=== PATIENT | male | born 1945 | race Caucasian/White ===

== ENCOUNTER 2018-08-10 22:39 | Emergency (ER) | payer MEDICARE, BC ==
[2018-08-10 23:24] VITALS: BP 182/69
[2018-08-11] MEDS ORDERED: Cephalexin 500 MG Cap PO ONE (00:08)
[2018-08-11] MEDS ORDERED: Acetaminophen/HYDROcodone 325-10 MG Tab PO ONE (00:08)
[2018-08-11] MEDS ORDERED: Bacitracin Oint 1 GM U/D Packet TOP ONE (00:13)
--- NOTE | 2018-08-11 00:15 | EDM.PDOC ---
ED HPI GENERAL MEDICAL PROBLEM - General Chief Complaint: Skin Complaint Stated Complaint: SWOLLEN FINGER LEFT HAND [phone] Time Seen by Provider: 08/11/18 00:02 Source of Information: Reports: Patient History Limitations: Reports: No Limitations - History of Present Illness INITIAL COMMENTS - FREE TEXT/NARRATIVE: This 72 yo male patient reports to the ED with left 2nd finger pain and swelling. The patient reports he picked something hard out of that area several days ago, but started to notice increased pain and swelling of the finger over the past 24 hours. 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 Left Finger-Index Pain Score (Numeric/FACES): 8 - Related Data Allergies Allergy/AdvReac Type Severity Reaction Status Date / Time No Known Allergies Allergy Verified 08/10/18 23:08 Home Meds: Home Meds Allopurinol [Zyloprim] 300 mg PO DAILY 05/06/16 [History] Furosemide 40 mg PO DAILY 05/06/16 [History] Insulin NPH/Insulin Reg,Human [NovoLIN 70-30] 60 units SUBCUT BID 05/06/16 [ History] Linagliptin [Tradjenta] 1 tab PO DAILY 05/06/16 [History] Metoprolol Tartrate 50 mg PO DAILY 05/06/16 [History] Rosuvastatin [Crestor] 10 mg PO BEDTIME 05/06/16 [History] Telmisartan [Micardis] 80 mg PO DAILY 05/06/16 [History] metFORMIN [Glucophage] 1 tab PO BID 05/06/16 [History] Past Medical History HEENT History: Reports: Cataract, Impaired Vision Cardiovascular History: Reports: CAD, High Cholesterol, Hypertension Respiratory History: Reports: None Gastrointestinal History: Reports: None Genitourinary History: Reports: None Musculoskeletal History: Reports: Amputation Neurological History: Reports: None Psychiatric History: Reports: None Endocrine/Metabolic History: Reports: Diabetes, Type II Hematologic History: Reports: None Immunologic History: Reports: None Oncologic (Cancer) History: Reports: Prostate Dermatologic History: Reports: None - Infectious Disease History Infectious Disease History: Reports: Chicken Pox, Measles, Mumps - Past Surgical History Cardiovascular Surgical History: Reports: Coronary Artery Stent Male Surgical History: Reports: TURP-Transurethral Resection of Prostate Social & Family History - Family History Family Medical History: Noncontributory - Caffeine Use Caffeine Use: Reports: Coffee, Soda Other Caffeine Use: 5-6 cups coffee/day ED ROS GENERAL - Review of Systems Review Of Systems: ROS reveals no pertinent complaints other than HPI. ED EXAM, SKIN/RASH Exam: See Below Exam Limited By: No Limitations General Appearance: Alert, WD/WN, Mild Distress Eye Exam: Bilateral Eye: EOMI Head: Atraumatic Neck: Normal Inspection Respiratory/Chest: No Respiratory Distress, Normal Breath Sounds Cardiovascular: Normal Peripheral Pulses, Regular Rate, Rhythm, No Edema, No Gallop, No JVD, No Murmur, No Rub GI/Abdominal: Normal Bowel Sounds, Soft, Non-Tender, No Organomegaly, No Distention, No Abnormal Bruit, No Mass (Male) Exam: Deferred Back Exam: Normal Inspection, Full Range of Motion, NT Extremities: Normal Inspection, Normal Range of Motion, Non-Tender, No Pedal Edema, Normal Capillary Refill Neurological: Alert, Oriented, CN II-XII Intact, Normal Cognition, Normal Gait, Normal Reflexes, No Motor/Sensory Deficits Psychiatric: Normal Affect, Normal Mood Skin: Erythema Location, Skin: Upper Extremity, Left Characteristics: Erythematous Associated features: Warmth, Tenderness, Swelling, Inflammation Lymphatic: No Adenopathy Course - Vital Signs Last Recorded V/S: Last Vital Signs Temp 37.4 C 08/10/18 23:19 Pulse 68 08/10/18 23:19 Resp 18 08/10/18 23:19 BP 182/69 H 08/10/18 23:19 Pulse Ox 97 08/10/18 23:19 - Orders/Labs/Meds Meds: Medications Discontinued Medications Generic Name Dose Route Start Last Admin Trade Name Freq PRN Reason Stop Dose Admin Hydrocodone Bitart/Acetaminophen 1 tab 08/11/18 00:08 [place] 325-10 Mg PO 08/11/18 00:09 ONETIME ONE Bacitracin 1 dose 08/11/18 00:13 Bacitracin Oint 1 Gm TOP 08/11/18 00:14 ONETIME ONE Cephalexin 500 mg 08/11/18 00:08 Keflex PO 08/11/18 00:09 ONETIME ONE Departure - Departure Time of Disposition: 00:11 Disposition: Home, Self-Care 01 Condition: Fair Clinical Impression: Ingrown fingernail, Cellulitis and abscess of finger, unspecified - Discharge Information *PRESCRIPTION DRUG MONITORING PROGRAM REVIEWED*: Not Applicable *COPY OF PRESCRIPTION DRUG MONITORING REPORT IN PATIENT MAGALY: Not Applicable Instructions: Cellulitis, Adult, [place] Forms: ED Department Discharge Care Plan Goals: The patient was advised of the examination results during the visit. The patient was given a dose of Erving and Keflex while in the ED. Th patient was discharged with a script for Keflex (500 mg) #40 to take 1 by mouth 4 times per day for 10 days. The patient was encouraged to soak his finger 2 times per day and continue to push back the skin along his fingernail. If the patient continues to have symptoms, the patient should follow-up with his primary care facility or return to the emergency department.
== END 2018-08-11 00:27 | disposition home or self-care (01) ==
LOC: DL.ED 22:39
DX: L02.512 Cutaneous abscess of left hand (principal); L03.012 Cellulitis of left finger; L60.0 Ingrowing nail; E11.9 Type 2 diabetes mellitus without complications; I10 Essential (primary) hypertension; Z79.4 Long term (current) use of insulin; Z79.899 Other long term (current) drug therapy
CPT/HCPCS: 99282; A9270

== ENCOUNTER 2018-08-11 14:18 | Inpatient (IN) | payer MEDICARE, BC ==
[2018-08-11] MEDS ORDERED: 50% Dextrose in Water 50 ML Syringe IVPUSH PRN (16:00)
[2018-08-11] MEDS ORDERED: Acetaminophen/HYDROcodone 325-10 MG Tab PO PRN (16:02)
[2018-08-11] MEDS ORDERED: Acetaminophen 325 MG Tab PO PRN (16:02)
[2018-08-11] MEDS ORDERED: Docusate Sodium 100 MG Cap PO PRN (16:02)
[2018-08-11] MEDS ORDERED: Ondansetron 4 MG Tab.DIS PO PRN (16:02)
[2018-08-11] MEDS ORDERED: Ibuprofen 400 MG Tab PO PRN (16:02)
--- NOTE | 2018-08-11 16:24 | PCM.HP ---
H&P History of Present Illness - General Date of Service: 08/11/18 Admit Problem/Dx: Admission Diagnosis/Problem Admission Diagnosis/Problem Cellulitis Source of Information: Patient - History of Present Illness Initial Comments - Free Text/Narative: h/o dm, htn, cad developed pain and swelling in the left second finger nail bed area about 2 weeks ago. The swelling got worse over the weekend. Associated with redness. The patient came into the emergency room. Was given Keflex. Took it for 1 day. Despite the antibiotic the swelling was getting worse, redness was moving more proximal. There was no fever with it. On the day of admission the patient presented to the clinic and the concern was uncontrolled infection and was recommended the further hospital treatment. - Related Data Allergies/Adverse Reactions: Allergies Allergy/AdvReac Type Severity Reaction Status Date / Time No Known Allergies Allergy Verified 08/11/18 15:40 Home Medications: Home Meds Allopurinol [Zyloprim] 100 mg PO DAILY 05/06/16 [History] Furosemide 40 mg PO DAILY 05/06/16 [History] Linagliptin [Tradjenta] 5 mg PO DAILY 05/06/16 [History] Rosuvastatin [Crestor] 40 mg PO BEDTIME 05/06/16 [History] Telmisartan [Micardis] 80 mg PO DAILY 05/06/16 [History] Aspirin 81 mg PO DAILY 08/11/18 [History] Insulin NPH/Insulin Reg,Human [Novolin 70-30] 60 units SUBCUT BIDMEALS 08/11/18 [History] Linagliptin [Tradjenta] 5 mg PO DAILY 08/11/18 [History] amLODIPine [Norvasc] 5 mg PO DAILY 08/11/18 [History] hydrALAZINE HCl [Hydralazine HCl] 100 mg PO TID 08/11/18 [History] Past Medical History HEENT History: Reports: Cataract, Impaired Vision Cardiovascular History: Reports: CAD, High Cholesterol, Hypertension, Stents Respiratory History: Reports: None, Sleep Apnea Gastrointestinal History: Reports: None, Diverticulosis, Hemorrhoids Genitourinary History: Reports: None Musculoskeletal History: Reports: Amputation, Arthritis, Gout Other Musculoskeletal History: Right ring and tip oif left middle finger Neurological History: Reports: None, Neuropathy, Diabetic Psychiatric History: Reports: None Endocrine/Metabolic History: Reports: Diabetes, Type II, Obesity/BMI 30+ Hematologic History: Reports: None Immunologic History: Reports: None Oncologic (Cancer) History: Reports: Prostate Dermatologic History: Reports: Cellulitis - Infectious Disease History Infectious Disease History: Reports: Chicken Pox, Measles - Past Surgical History Head Surgeries/Procedures: Reports: None Cardiovascular Surgical History: Reports: Coronary Artery Stent Other Cardiovascular Surgeries/Procedures: before 2008 GI Surgical History: Reports: Colonoscopy, EGD Male Surgical History: Reports: TURP-Transurethral Resection of Prostate Other Male Surgeries/Procedures: prostate removed Musculoskeletal Surgical History: Reports: Amputation Social & Family History - Family History Family Medical History: Noncontributory - Tobacco Use Smoking Status *Q: Former Smoker Used Tobacco, but Quit: Yes Month/Year Tobacco Last Used: 1989 Second Hand Smoke Exposure: No - Caffeine Use Caffeine Use: Reports: Coffee, Soda Other Caffeine Use: 5-6 cups coffee/day - Recreational Drug Use Recreational Drug Use: No H&P Review of Systems - Review of Systems: Review Of Systems: See Below General: Reports: Chills. Denies: Fever Pulmonary: Denies: Shortness of Breath Cardiovascular: Denies: Chest Pain, Edema Gastrointestinal: Denies: Abdominal Pain Skin: Reports: Other (Left second finger distal 4 phalanx pain, edema,) Psychiatric: Denies: Confusion Exam - Exam Exam: See Below - Vital Signs Vital Signs: Last Vital Signs Temp 37.3 C 08/11/18 14:26 Pulse 60 08/11/18 14:26 Resp 20 08/11/18 14:26 BP 163/65 H 08/11/18 14:26 Pulse Ox 97 08/11/18 14:26 Weight: 113.398 kg - Exam General: Alert, Oriented Neck: Supple Lungs: Clear to Auscultation, Normal Respiratory Effort Cardiovascular: Regular Rate, Regular Rhythm GI/Abdominal Exam: Normal Bowel Sounds, Soft, Non-Tender Extremities: No Pedal Edema Skin: Other (Left second finger with edema, no drainage, erythema, tenderness) Neuro Extensive - Mental Status: Alert, Oriented x3 - Patient Data Lab Results Last 24 hrs: Laboratory Results - last 24 hr 08/11/18 Range/Units 14:36 POC Glucose 137 H (83-110) mg/dl Result Diagrams: 08/11/18 16:05 08/11/18 16:05 - Problem List (1) Diabetes SNOMED Code(s): 67859226 ICD Code: E11.9 - TYPE 2 DIABETES MELLITUS WITHOUT COMPLICATIONS Status: Acute Current Visit: Yes (2) Cellulitis and abscess of finger, unspecified SNOMED Code(s): 105022344 ICD Code: L03.019 - CELLULITIS OF UNSPECIFIED FINGER; L02.519 - CUTANEOUS ABSCESS OF UNSPECIFIED HAND Status: Acute Current Visit: No (3) HTN (hypertension) SNOMED Code(s): 78183888 ICD Code: I10 - ESSENTIAL (PRIMARY) HYPERTENSION Status: Acute Current Visit: No Qualifiers: Hypertension type: essential hypertension Qualified Code(s): I10 - Essential (primary) hypertension Problem List Initiated/Reviewed/Updated: Yes Orders Last 24hrs: Active Orders 24 hr Category Date Time Status Patient Status [ADT] Routine ADT 08/11/18 16:02 Ordered Ambulate [RC] ASDIRECTED Care 08/11/18 16:02 Ordered Antiembolic Devices [RC] PER UNIT ROUTINE Care 08/11/18 16:05 Ordered Glucose [Blood Glucose Check, Bedside] [RC] QIDACANDBED Care 08/11/18 15:38 Inactive Glucose [Blood Glucose Check, Bedside] [RC] QIDACANDBED Care 08/11/18 15:49 Active Oxygen Therapy [RC] PRN Care 08/11/18 16:02 Ordered Peripheral IV Care [RC] . DIRECTED Care 08/11/18 16:05 Ordered Vital Signs [RC] Q4H Care 08/11/18 16:02 Ordered Consistent Carbohydrate Diet [DIET] Diet 08/11/18 Dinner Ordered BASIC METABOLIC PANEL,BMP [CHEM] AM Lab 08/12/18 05:15 Ordered BASIC METABOLIC PANEL,BMP [CHEM] Routine Lab 08/11/18 15:48 Ordered CBC WITH AUTO DIFF [HEME] AM Lab 08/12/18 05:15 Ordered CBC WITH AUTO DIFF [HEME] Routine Lab 08/11/18 15:48 Ordered CULTURE BLOOD [BC] Stat Lab 08/11/18 15:38 Ordered CULTURE BLOOD [BC] Stat Lab 08/11/18 15:38 Ordered Acetaminophen [Tylenol] Med 08/11/18 16:02 Ordered 650 mg PO Q4H PRN Acetaminophen/HYDROcodone [[place] 325-10 MG] Med 08/11/18 16:02 Ordered 1 tab PO Q4H PRN Allopurinol [Zyloprim] Med 08/12/18 09:00 Ordered 100 mg PO DAILY Aspirin Med 08/12/18 08:00 Ordered 81 mg PO WITHBREAKFAST Dextrose 50% in Water Med 08/11/18 15:49 Ordered 25 ml IVPUSH Q1H PRN Docusate Sodium [Colace] Med 08/11/18 16:02 Ordered 100 mg PO BID PRN Furosemide [Lasix] Med 08/12/18 09:00 Ordered 40 mg PO DAILY Heparin Sodium Med 08/11/18 22:00 Ordered 5,000 units SUBCUT Q8HR Ibuprofen [Motrin] Med 08/11/18 16:02 Ordered 400 mg PO Q6H PRN Insulin Lispro [HumaLOG] Med 08/11/18 17:00 Ordered See Protocol SUBCUT ACBED Insulin NPH/Insulin Reg,Human [NovoLIN 70-30] Med 08/11/18 18:00 Ordered 60 unit SUBCUT BIDMEALS Ondansetron [Zofran ODT] Med 08/11/18 16:02 Ordered 4 mg PO Q6H PRN Pharmacy to Dose - Vancomycin Med 08/11/18 16:00 Ordered 1 dose .XX ASDIRECTED Piperacillin/Tazobactam [Zosyn] 3.375 gm Med 08/11/18 16:00 Ordered Sodium Chloride 0.9% [Normal Saline] 100 ml IV Q6H Rosuvastatin [Crestor] Med 08/11/18 21:00 Ordered 40 mg PO BEDTIME Sodium Chloride 0.9% [Saline Flush] Med 08/11/18 16:02 Ordered 10 ml FLUSH ASDIRECTED PRN Telmisartan Med 08/12/18 09:00 Ordered 80 mg PO DAILY Zolpidem [Ambien] Med 08/11/18 16:02 Ordered 5 mg PO BEDTIME PRN amLODIPine [Norvasc] Med 08/12/18 09:00 Ordered 5 mg PO DAILY hydrALAZINE HCl [Hydralazine HCl] Med 08/11/18 21:00 Ordered 100 mg PO TID Antiembolic Hose [OM.PC] Per Unit Routine Oth 08/11/18 16:04 Ordered Blood Culture x2 Reflex Set [OM.PC] Stat Oth 08/11/18 15:38 Ordered Peripheral IV Insertion Adult [OM.PC] Routine Oth 08/11/18 16:02 Ordered Saline Lock Insert [OM.PC] Routine Oth 08/11/18 16:02 Ordered Resuscitation Status Routine Resus Stat 08/11/18 16:02 Ordered Medication Orders Acetaminophen (Tylenol) 650 mg PO Q4HR PRN PRN Reason: Pain (Mild 1-3)/fever Hydrocodone Bitart/Acetaminophen ([place] 325-10 Mg) 1 tab PO Q4HR PRN PRN Reason: Pain (severe 7-10) Allopurinol (Zyloprim) 100 mg PO DAILY [facility] Amlodipine Besylate (Norvasc) 5 mg PO DAILY [facility] Aspirin (Aspirin) 81 mg PO WITHBREAKFAST [facility] Dextrose/Water (Dextrose 50% In Water) 25 ml IVPUSH Q1H PRN PRN Reason: blood sugar <70 Docusate Sodium (Colace) 100 mg PO BID PRN PRN Reason: Constipation Furosemide (Lasix) 40 mg PO DAILY [facility] Heparin Sodium (Porcine) (Heparin Sodium) 5,000 units SUBCUT Q8HR [facility] Piperacillin Sod/Tazobactam (Sod 3.375 gm/ Sodium Chloride) 100 mls @ 200 mls/ hr IV Q6H [facility] Ibuprofen (Motrin) 400 mg PO Q6HR PRN PRN Reason: Pain (moderate 4-6) Insulin Human Isoph/Insulin Regular (Novolin 70-30) 60 unit SUBCUT BIDMEALS [facility] Insulin Human Lispro (Humalog) 0 unit SUBCUT ACBED KALEB; Protocol Non-Formulary Medication (Hydralazine Hcl [Hydralazine Hcl]) 100 mg PO TID [facility] Non-Formulary Medication (Telmisartan) 80 mg PO DAILY [facility] Ondansetron HCl (Zofran Odt) 4 mg PO Q6HR PRN PRN Reason: nausea, able to take PO Rosuvastatin Calcium (Crestor) 40 mg PO BEDTIME [facility] Sodium Chloride (Saline Flush) 10 ml FLUSH ASDIRECTED PRN PRN Reason: Keep Vein Open Vancomycin HCl (Pharmacy To Dose - Vancomycin) 1 dose .XX ASDIRECTED KALEB Zolpidem Tartrate (Ambien) 5 mg PO BEDTIME PRN PRN Reason: Sleep Assessment/Plan Comment:: 72-year-old gentleman with diabetes, hypertension. The patient developed cellulitis, swelling, redness, tenderness of the left second finger distal phalanx The patient failed outpatient antibiotic with Keflex Will obtain blood culture, CBC, basic metabolic panel Start empirical treatment with Zosyn and vancomycin Diabetes Will treat with Novolin 70/30 twice a day Treat with Supplemental insulin Use D50 for hypoglycemia Hypertension Treat with telmisartan, Norvasc DVT prophylaxis with subcutaneous heparin
[2018-08-11 17:02] LABS: ANION GAP 18.1
[2018-08-11] MEDS: Insulin NPH/Insulin Regular,Human 70-30 100 Units/ML 10 ML Vial SUBCUT SCH (18:23)
[2018-08-11] MEDS: Insulin Lispro 100 Units/ML 3 ML Vial SUBCUT SCH ×2 (19:04→21:17)
[2018-08-11] MEDS: Piperacillin/Tazobactam 3.375 GM in Sodium Chloride 0.9% 100 ML IV SCH (20:09)
[2018-08-11] MEDS ORDERED: Zolpidem 5 MG Tab PO PRN (21:00)
[2018-08-11] MEDS: hydrALAZINE 25 MG Tab PO SCH (22:05)
[2018-08-11] MEDS: Rosuvastatin 10 MG Tab PO SCH (22:07)
[2018-08-11] MEDS: Heparin Sodium 5,000 Units/ML Vial SUBCUT SCH (22:08)
[2018-08-12] MEDS: Piperacillin/Tazobactam 3.375 GM in Sodium Chloride 0.9% 100 ML IV SCH ×6 (00:32→23:43)
[2018-08-12] MEDS: Heparin Sodium 5,000 Units/ML Vial SUBCUT SCH ×3 (06:23→22:01)
[2018-08-12] MEDS: hydrALAZINE 25 MG Tab PO SCH ×3 (09:03→20:58)
[2018-08-12] MEDS: Furosemide 40 MG Tab PO SCH (09:07)
[2018-08-12] MEDS: Allopurinol 100 MG Tab PO SCH (09:07)
[2018-08-12] MEDS: Aspirin 81 MG Tab.Chew PO SCH (09:07)
[2018-08-12] MEDS: amLODIPine 5 MG Tab PO SCH (09:07)
[2018-08-12] MEDS: Insulin NPH/Insulin Regular,Human 70-30 100 Units/ML 10 ML Vial SUBCUT SCH ×2 (09:15→18:07)
[2018-08-12] MEDS: Insulin Lispro 100 Units/ML 3 ML Vial SUBCUT SCH ×4 (09:39→21:01)
--- NOTE | 2018-08-12 09:55 | PCM.PN ---
- General Info Date of Service: 08/12/18 Subjective Update: Overnight had no fever. Feels that the redness in the finger has improved, associated swelling is less. Symptoms started a few days prior to admission. No shortness of breath, no chest pain. Functional Status: Reports: Pain Controlled - Review of Systems General: Denies: Fever Pulmonary: Denies: Shortness of Breath Cardiovascular: Denies: Chest Pain Gastrointestinal: Denies: Abdominal Pain Neurological: Denies: Confusion - Patient Data Vitals - Most Recent: Last Vital Signs Temp 37.1 C 08/12/18 07:28 Pulse 54 L 08/12/18 07:28 Resp 19 08/12/18 07:28 BP 127/68 08/12/18 09:07 Pulse Ox 96 08/12/18 07:28 Weight - Most Recent: 113.398 kg I&O - Last 24 Hours: Intake & Output 08/11/18 08/12/18 08/12/18 22:59 06:59 14:59 Intake Total 886 103 240 Balance 886 103 240 Lab Results Last 24 Hours: Laboratory Results - last 24 hr 08/11/18 08/11/18 08/11/18 Range/Units 14:36 16:05 16:05 WBC 14.7 H (5.0-10.0) 10^3/uL RBC 5.60 (4.6-6.2) 10^6/uL Hgb 15.5 (14.0-18.0) g/dL Hct 46.5 (40.0-54.0) % MCV 83.0 (80-100) fL MCH 27.7 (27.0-34.0) pg MCHC 33.3 (33.0-35.0) g/dL Plt Count 287 (150-450) 10^3/uL Neut % (Auto) 75.7 H (42.2-75.2) % Lymph % (Auto) 9.5 L (20.5-50.1) % [place] % (Auto) 14.1 H (2-8) % Eos % (Auto) 0.3 L (1.0-3.0) % Baso % (Auto) 0.4 (0.0-1.0) % Sodium 134 L (135-145) mmol/L Potassium 3.1 L (3.6-5.0) mmol/L Chloride 98 L (101-111) mmol/L Carbon Dioxide 21.0 (21.0-31.0) mmol/L Anion Gap 18.1 BUN 17 (7-18) mg/dL Creatinine 1.4 H (0.6-1.3) mg/dL Est Cr Clr Drug Dosing 50.80 mL/min Estimated GFR (MDRD) 50 Glucose 109 H (74-105) mg/dL POC Glucose 137 H (83-110) mg/dl Calcium 10.0 (8.4-10.2) mg/dl 08/11/18 08/11/18 08/12/18 Range/Units 17:13 21:06 06:15 WBC 10.7 H (5.0-10.0) 10^3/uL RBC 5.23 (4.6-6.2) 10^6/uL Hgb 14.6 (14.0-18.0) g/dL Hct 43.9 (40.0-54.0) % MCV 83.9 (80-100) fL MCH 27.9 (27.0-34.0) pg MCHC 33.3 (33.0-35.0) g/dL Plt Count 288 (150-450) 10^3/uL Neut % (Auto) 67.8 (42.2-75.2) % Lymph % (Auto) 13.4 L (20.5-50.1) % [place] % (Auto) 17.1 H (2-8) % Eos % (Auto) 1.1 (1.0-3.0) % Baso % (Auto) 0.6 (0.0-1.0) % Sodium (135-145) mmol/L Potassium (3.6-5.0) mmol/L Chloride (101-111) mmol/L Carbon Dioxide (21.0-31.0) mmol/L Anion Gap BUN (7-18) mg/dL Creatinine (0.6-1.3) mg/dL Est Cr Clr Drug Dosing mL/min Estimated GFR (MDRD) Glucose (74-105) mg/dL POC Glucose 96 108 (83-110) mg/dl Calcium (8.4-10.2) mg/dl 08/12/18 08/12/18 Range/Units 06:15 07:54 WBC (5.0-10.0) 10^3/uL RBC (4.6-6.2) 10^6/uL Hgb (14.0-18.0) g/dL Hct (40.0-54.0) % MCV (80-100) fL MCH (27.0-34.0) pg MCHC (33.0-35.0) g/dL Plt Count (150-450) 10^3/uL Neut % (Auto) (42.2-75.2) % Lymph % (Auto) (20.5-50.1) % [place] % (Auto) (2-8) % Eos % (Auto) (1.0-3.0) % Baso % (Auto) (0.0-1.0) % Sodium 135 (135-145) mmol/L Potassium 3.0 L (3.6-5.0) mmol/L Chloride 98 L (101-111) mmol/L Carbon Dioxide 23.0 (21.0-31.0) mmol/L Anion Gap 17.0 BUN 22 H (7-18) mg/dL Creatinine 1.6 H (0.6-1.3) mg/dL Est Cr Clr Drug Dosing 44.45 mL/min Estimated GFR (MDRD) 43 Glucose 86 (74-105) mg/dL POC Glucose 94 (83-110) mg/dl Calcium 9.4 (8.4-10.2) mg/dl Med Orders - Current: Current Medications Acetaminophen (Tylenol) 650 mg PO Q4HR PRN PRN Reason: Pain (Mild 1-3)/fever Hydrocodone Bitart/Acetaminophen ([place] 325-10 Mg) 1 tab PO Q4HR PRN PRN Reason: Pain (severe 7-10) Allopurinol (Zyloprim) 100 mg PO DAILY [facility] Last Admin: 08/12/18 09:07 Dose: 100 mg Amlodipine Besylate (Norvasc) 5 mg PO DAILY [facility] Last Admin: 08/12/18 09:07 Dose: 5 mg Aspirin (Aspirin) 81 mg PO WITHBREAKFAST [facility] Last Admin: 08/12/18 09:07 Dose: 81 mg Dextrose/Water (Dextrose 50% In Water) 25 ml IVPUSH Q1H PRN PRN Reason: blood sugar <70 Docusate Sodium (Colace) 100 mg PO BID PRN PRN Reason: Constipation Furosemide (Lasix) 40 mg PO DAILY [facility] Last Admin: 08/12/18 09:07 Dose: 40 mg Heparin Sodium (Porcine) (Heparin Sodium) 5,000 units SUBCUT Q8HR [facility] Last Admin: 08/12/18 06:23 Dose: 5,000 units Hydralazine HCl (Apresoline) 100 mg PO TID [facility] Last Admin: 08/12/18 09:03 Dose: 100 mg Piperacillin Sod/Tazobactam (Sod 3.375 gm/ Sodium Chloride) 100 mls @ 200 mls/ hr IV Q6HR [facility] Last Admin: 08/12/18 05:47 Dose: 200 mls/hr Vancomycin HCl 1 gm/ Sodium (Chloride) 250 mls @ 166.667 mls/hr IV Q12H [facility] Last Admin: 08/12/18 06:23 Dose: 166.667 mls/hr Ibuprofen (Motrin) 400 mg PO Q6HR PRN PRN Reason: Pain (moderate 4-6) Last Admin: 08/11/18 18:19 Dose: 400 mg Insulin Human Isoph/Insulin Regular (Novolin 70-30) 60 unit SUBCUT BIDMEALS [facility] Last Admin: 08/12/18 09:15 Dose: 60 units Insulin Human Lispro (Humalog) 0 unit SUBCUT ACBED [facility]; Protocol Last Admin: 08/12/18 09:39 Dose: Not Given Non-Formulary Medication (Telmisartan) 80 mg PO DAILY [facility] Ondansetron HCl (Zofran Odt) 4 mg PO Q6HR PRN PRN Reason: nausea, able to take PO Potassium Chloride (Klor-Con 10) 40 meq PO BIDMEALS [facility] Stop: 08/12/18 18:01 Potassium Chloride (Klor-Con 10) 20 meq PO WITHBREAKFAST [facility] Rosuvastatin Calcium (Crestor) 40 mg PO BEDTIME [facility] Last Admin: 08/11/18 22:07 Dose: 40 mg Sodium Chloride (Saline Flush) 10 ml FLUSH ASDIRECTED PRN PRN Reason: Keep Vein Open Vancomycin HCl (Pharmacy To Dose - Vancomycin) 1 dose .XX ASDIRECTED [facility] Zolpidem Tartrate (Ambien) 5 mg PO BEDTIME PRN PRN Reason: Sleep Discontinued Medications Vancomycin HCl 1.25 gm/ Sodium (Chloride) 250 mls @ 166.667 mls/hr IV ONETIME ONE Stop: 08/11/18 18:29 Last Admin: 08/11/18 18:20 Dose: 166.667 mls/hr - Exam Quality Assessment: No: Supplemental Oxygen General: Alert, Oriented Neck: Supple Lungs: Clear to Auscultation, Normal Respiratory Effort Cardiovascular: Regular Rate, Regular Rhythm GI/Abdominal Exam: Normal Bowel Sounds, Soft, Non-Tender Extremities: No Pedal Edema, Other (left second finger less swollen, improved proximal redness) - Problem List & Annotations (1) Diabetes SNOMED Code(s): 68110960 Code(s): E11.9 - TYPE 2 DIABETES MELLITUS WITHOUT COMPLICATIONS Status: Acute Current Visit: Yes (2) Cellulitis and abscess of finger, unspecified SNOMED Code(s): 876835944 Code(s): L03.019 - CELLULITIS OF UNSPECIFIED FINGER; L02.519 - CUTANEOUS ABSCESS OF UNSPECIFIED HAND Status: Acute Current Visit: No (3) HTN (hypertension) SNOMED Code(s): 80920876 Code(s): I10 - ESSENTIAL (PRIMARY) HYPERTENSION Status: Acute Current Visit: No Qualifiers: Hypertension type: essential hypertension Qualified Code(s): I10 - Essential (primary) hypertension - Problem List Review Problem List Initiated/Reviewed/Updated: Yes - My Orders Last 24 Hours: My Active Orders 08/11/18 15:38 Glucose [Blood Glucose Check, Bedside] [RC] QIDACANDBED Blood Culture x2 Reflex Set [OM.PC] Stat 08/11/18 15:49 Glucose [Blood Glucose Check, Bedside] [RC] 0730,1130,1630,21 08/11/18 16:00 Dextrose 50% in Water 25 ml IVPUSH Q1H PRN Pharmacy to Dose - Vancomycin 1 dose .XX ASDIRECTED 08/11/18 16:02 Patient Status [ADT] Routine Ambulate [RC] ASDIRECTED Oxygen Therapy [RC] PRN Vital Signs [RC] 00,04,08,12,16,20 Acetaminophen [Tylenol] 650 mg PO Q4HR PRN Acetaminophen/HYDROcodone [Orla 325-10 MG] 1 tab PO Q4HR PRN Docusate Sodium [Colace] 100 mg PO BID PRN Ibuprofen [Motrin] 400 mg PO Q6HR PRN Ondansetron [Zofran ODT] 4 mg PO Q6HR PRN Sodium Chloride 0.9% [Saline Flush] 10 ml FLUSH ASDIRECTED PRN Peripheral IV Insertion Adult [OM.PC] Routine Saline Lock Insert [OM.PC] Routine Resuscitation Status Routine 08/11/18 16:04 Antiembolic Hose [OM.PC] Per Unit Routine 08/11/18 16:05 Antiembolic Devices [RC] PER UNIT ROUTINE Peripheral IV Care [RC] CULTURE BLOOD [BC] Stat 08/11/18 16:15 CULTURE BLOOD [BC] Stat 08/11/18 17:00 Insulin Lispro [HumaLOG] See Protocol SUBCUT ACBED 08/11/18 18:00 Insulin NPH/Insulin Reg,Human [NovoLIN 70-30] 60 unit SUBCUT BIDMEALS Piperacillin/Tazobactam [Zosyn] 3.375 gm Sodium Chloride 0.9% [Normal Saline] 100 ml IV Q6HR 08/11/18 21:00 Rosuvastatin [Crestor] 40 mg PO BEDTIME Zolpidem [Ambien] 5 mg PO BEDTIME PRN hydrALAZINE [Apresoline] 100 mg PO TID 08/11/18 22:00 Heparin Sodium 5,000 units SUBCUT Q8HR 08/11/18 Dinner Consistent Carbohydrate Diet [DIET] 08/12/18 06:00 Vancomycin 1 gm Sodium Chloride 0.9% [Normal Saline] 250 ml IV Q12H 08/12/18 08:00 Aspirin 81 mg PO WITHBREAKFAST 08/12/18 09:00 Allopurinol [Zyloprim] 100 mg PO DAILY Furosemide [Lasix] 40 mg PO DAILY Telmisartan 80 mg PO DAILY amLODIPine [Norvasc] 5 mg PO DAILY 08/12/18 10:00 Potassium Chloride [Klor-Con 10] 40 meq PO BIDMEALS 08/13/18 05:15 BASIC METABOLIC PANEL,BMP [CHEM] AM CBC WITH AUTO DIFF [HEME] AM 08/13/18 05:30 VANCOMYCIN TROUGH [CHEM] Timed 08/13/18 08:00 Potassium Chloride [Klor-Con 10] 20 meq PO WITHBREAKFAST - Plan Plan:: 72-year-old gentleman with diabetes, hypertension. The patient developed cellulitis, swelling, redness, tenderness of the left second finger distal phalanx The patient failed outpatient antibiotic with Keflex blood culture: pending treatment with Zosyn and vancomycin Diabetes Will treat with Novolin 70/30 twice a day Treat with Supplemental insulin Use D50 for hypoglycemia Hypertension Treat with telmisartan, Norvasc Chronic kidney disease stage III Monitor renal function and electrolytes with vancomycin DVT prophylaxis with subcutaneous heparin
[2018-08-12] MEDS: TELMISARTAN 80 MG PO SCH (10:24)
[2018-08-12] MEDS: Potassium Chloride 10 MEQ Tab.ER PO SCH ×2 (12:02→18:10)
[2018-08-12] MEDS: Rosuvastatin 10 MG Tab PO SCH (20:59)
[2018-08-13] MEDS: Piperacillin/Tazobactam 3.375 GM in Sodium Chloride 0.9% 100 ML IV SCH ×3 (05:55→17:36)
[2018-08-13] MEDS: Heparin Sodium 5,000 Units/ML Vial SUBCUT SCH ×3 (05:56→21:59)
[2018-08-13 06:21] LABS: ANION GAP 13.7
[2018-08-13] MEDS: Insulin Lispro 100 Units/ML 3 ML Vial SUBCUT SCH ×4 (07:59→22:01)
[2018-08-13] MEDS: Aspirin 81 MG Tab.Chew PO SCH (08:11)
[2018-08-13] MEDS: hydrALAZINE 25 MG Tab PO SCH ×3 (08:12→21:59)
[2018-08-13] MEDS: Potassium Chloride 10 MEQ Tab.ER PO SCH (08:12)
[2018-08-13] MEDS: amLODIPine 5 MG Tab PO SCH (08:13)
[2018-08-13] MEDS: Furosemide 40 MG Tab PO SCH (08:13)
[2018-08-13] MEDS: Allopurinol 100 MG Tab PO SCH (08:14)
[2018-08-13] MEDS: TELMISARTAN 80 MG PO SCH (08:15)
[2018-08-13] MEDS: Insulin NPH/Insulin Regular,Human 70-30 100 Units/ML 10 ML Vial SUBCUT SCH ×2 (09:40→17:35)
--- NOTE | 2018-08-13 09:55 | PCM.PN ---
- General Info Date of Service: 08/13/18 Admission Dx/Problem (Free Text): Admission Diagnosis/Problem Admission Diagnosis/Problem Cellulitis Subjective Update: Overnight had no fever. Feels that the finger has further improved, the associated swelling is less. Symptoms started a few days prior to admission. No shortness of breath, no chest pain. no drainage noted low BS - was asymptomatic Functional Status: Reports: Pain Controlled, Tolerating Diet - Review of Systems Pulmonary: Denies: Shortness of Breath Cardiovascular: Denies: Chest Pain, Edema Skin: Reports: Other (tenderness left 2nd finger) - Patient Data Vitals - Most Recent: Last Vital Signs Temp 36.6 C 08/13/18 07:38 Pulse 62 08/13/18 08:22 Resp 18 08/13/18 07:38 BP 144/63 H 08/13/18 08:13 Pulse Ox 97 08/13/18 07:38 Weight - Most Recent: 113.398 kg I&O - Last 24 Hours: Intake & Output 08/12/18 08/13/18 08/13/18 22:59 06:59 14:59 Intake Total 450 710 600 Balance 450 710 600 Lab Results Last 24 Hours: Laboratory Results - last 24 hr 08/12/18 08/12/18 08/12/18 Range/Units 11:23 17:01 20:59 WBC (5.0-10.0) 10^3/uL RBC (4.6-6.2) 10^6/uL Hgb (14.0-18.0) g/dL Hct (40.0-54.0) % MCV (80-100) fL MCH (27.0-34.0) pg MCHC (33.0-35.0) g/dL Plt Count (150-450) 10^3/uL Neut % (Auto) (42.2-75.2) % Lymph % (Auto) (20.5-50.1) % [place] % (Auto) (2-8) % Eos % (Auto) (1.0-3.0) % Baso % (Auto) (0.0-1.0) % Sodium (135-145) mmol/L Potassium (3.6-5.0) mmol/L Chloride (101-111) mmol/L Carbon Dioxide (21.0-31.0) mmol/L Anion Gap BUN (7-18) mg/dL Creatinine (0.6-1.3) mg/dL Est Cr Clr Drug Dosing mL/min Estimated GFR (MDRD) Glucose (74-105) mg/dL POC Glucose 161 H 148 H 137 H (83-110) mg/dl Calcium (8.4-10.2) mg/dl Vancomycin Trough (10-15) ug/ml 08/13/18 08/13/18 08/13/18 Range/Units 05:45 05:45 05:45 WBC 10.9 H (5.0-10.0) 10^3/uL RBC 4.88 (4.6-6.2) 10^6/uL Hgb 13.7 L (14.0-18.0) g/dL Hct 41.1 (40.0-54.0) % MCV 84.2 (80-100) fL MCH 28.1 (27.0-34.0) pg MCHC 33.3 (33.0-35.0) g/dL Plt Count 266 (150-450) 10^3/uL Neut % (Auto) 68.3 (42.2-75.2) % Lymph % (Auto) 13.6 L (20.5-50.1) % [place] % (Auto) 16.0 H (2-8) % Eos % (Auto) 1.6 (1.0-3.0) % Baso % (Auto) 0.5 (0.0-1.0) % Sodium 135 (135-145) mmol/L Potassium 3.7 (3.6-5.0) mmol/L Chloride 103 (101-111) mmol/L Carbon Dioxide 22.0 (21.0-31.0) mmol/L Anion Gap 13.7 BUN 23 H (7-18) mg/dL Creatinine 1.7 H (0.6-1.3) mg/dL Est Cr Clr Drug Dosing 41.83 mL/min Estimated GFR (MDRD) 40 Glucose 73 L (74-105) mg/dL POC Glucose (83-110) mg/dl Calcium 9.0 (8.4-10.2) mg/dl Vancomycin Trough 14.5 (10-15) ug/ml 08/13/18 08/13/18 Range/Units 07:15 09:24 WBC (5.0-10.0) 10^3/uL RBC (4.6-6.2) 10^6/uL Hgb (14.0-18.0) g/dL Hct (40.0-54.0) % MCV (80-100) fL MCH (27.0-34.0) pg MCHC (33.0-35.0) g/dL Plt Count (150-450) 10^3/uL Neut % (Auto) (42.2-75.2) % Lymph % (Auto) (20.5-50.1) % [place] % (Auto) (2-8) % Eos % (Auto) (1.0-3.0) % Baso % (Auto) (0.0-1.0) % Sodium (135-145) mmol/L Potassium (3.6-5.0) mmol/L Chloride (101-111) mmol/L Carbon Dioxide (21.0-31.0) mmol/L Anion Gap BUN (7-18) mg/dL Creatinine (0.6-1.3) mg/dL Est Cr Clr Drug Dosing mL/min Estimated GFR (MDRD) Glucose (74-105) mg/dL POC Glucose 66 L 149 H (83-110) mg/dl Calcium (8.4-10.2) mg/dl Vancomycin Trough (10-15) ug/ml Paul Results Last 24 Hours: Microbiology 08/11/18 16:15 Aerobic Blood Culture - Preliminary Blood - Venous - Lab Draw NO GROWTH AFTER 1 DAY Anaerobic Blood Culture - Preliminary NO GROWTH AFTER 1 DAY 08/11/18 16:05 Aerobic Blood Culture - Preliminary Blood - Venous NO GROWTH AFTER 1 DAY Anaerobic Blood Culture - Preliminary NO GROWTH AFTER 1 DAY Med Orders - Current: Current Medications Acetaminophen (Tylenol) 650 mg PO Q4HR PRN PRN Reason: Pain (Mild 1-3)/fever Hydrocodone Bitart/Acetaminophen ([place] 325-10 Mg) 1 tab PO Q4HR PRN PRN Reason: Pain (severe 7-10) Allopurinol (Zyloprim) 100 mg PO DAILY [facility] Last Admin: 08/13/18 08:14 Dose: 100 mg Amlodipine Besylate (Norvasc) 5 mg PO DAILY [facility] Last Admin: 08/13/18 08:13 Dose: 5 mg Aspirin (Aspirin) 81 mg PO WITHBREAKFAST [facility] Last Admin: 08/13/18 08:11 Dose: 81 mg Dextrose/Water (Dextrose 50% In Water) 25 ml IVPUSH Q1H PRN PRN Reason: blood sugar <70 Docusate Sodium (Colace) 100 mg PO BID PRN PRN Reason: Constipation Last Admin: 08/12/18 18:10 Dose: 100 mg Furosemide (Lasix) 40 mg PO DAILY [facility] Last Admin: 08/13/18 08:13 Dose: 40 mg Heparin Sodium (Porcine) (Heparin Sodium) 5,000 units SUBCUT Q8HR [facility] Last Admin: 08/13/18 05:56 Dose: 5,000 units Hydralazine HCl (Apresoline) 100 mg PO TID [facility] Last Admin: 08/13/18 08:12 Dose: 100 mg Piperacillin Sod/Tazobactam (Sod 3.375 gm/ Sodium Chloride) 100 mls @ 200 mls/ hr IV Q6HR [facility] Last Admin: 08/13/18 05:55 Dose: 200 mls/hr Ibuprofen (Motrin) 400 mg PO Q6HR PRN PRN Reason: Pain (moderate 4-6) Last Admin: 08/11/18 18:19 Dose: 400 mg Insulin Human Isoph/Insulin Regular (Novolin 70-30) 60 unit SUBCUT BIDMEALS [facility] Last Admin: 08/13/18 09:40 Dose: 60 units Insulin Human Lispro (Humalog) 0 unit SUBCUT ACBED [facility]; Protocol Last Admin: 08/13/18 07:59 Dose: Not Given Ondansetron HCl (Zofran Odt) 4 mg PO Q6HR PRN PRN Reason: nausea, able to take PO Telmisartan 80 Mg (Pt's Own Med) 0 each PO DAILY [facility] Last Admin: 08/13/18 08:15 Dose: 1 each Potassium Chloride (Klor-Con 10) 20 meq PO WITHBREAKFAST [facility] Last Admin: 08/13/18 08:12 Dose: 20 meq Rosuvastatin Calcium (Crestor) 40 mg PO BEDTIME [facility] Last Admin: 08/12/18 20:59 Dose: 40 mg Sodium Chloride (Saline Flush) 10 ml FLUSH ASDIRECTED PRN PRN Reason: Keep Vein Open Vancomycin HCl (Pharmacy To Dose - Vancomycin) 1 dose .XX ASDIRECTED [facility] Zolpidem Tartrate (Ambien) 5 mg PO BEDTIME PRN PRN Reason: Sleep Discontinued Medications Piperacillin Sod/Tazobactam (Sod 3.375 gm/ Sodium Chloride) 100 mls @ 200 mls/ hr IV Q6HR [facility] Last Admin: 08/12/18 12:12 Dose: Not Given Vancomycin HCl 1.25 gm/ Sodium (Chloride) 250 mls @ 166.667 mls/hr IV ONETIME ONE Stop: 08/11/18 18:29 Last Admin: 08/11/18 18:20 Dose: 166.667 mls/hr Vancomycin HCl 1 gm/ Sodium (Chloride) 250 mls @ 166.667 mls/hr IV Q12H [facility] Last Admin: 08/13/18 06:30 Dose: 166.667 mls/hr Potassium Chloride (Klor-Con 10) 40 meq PO BIDMEALS [facility] Stop: 08/12/18 18:01 Last Admin: 08/12/18 18:10 Dose: 40 meq - Exam General: Alert, Oriented Neck: Supple Lungs: Clear to Auscultation, Normal Respiratory Effort Cardiovascular: Regular Rate, Regular Rhythm GI/Abdominal Exam: Normal Bowel Sounds, Soft, Non-Tender Extremities: Other (left 2nd finger distal deep red discoloration, warm, mod tenderness, no apparent abscess) - Problem List & Annotations (1) Diabetes SNOMED Code(s): 99859894 Code(s): E11.9 - TYPE 2 DIABETES MELLITUS WITHOUT COMPLICATIONS Status: Acute Current Visit: Yes (2) Cellulitis and abscess of finger, unspecified SNOMED Code(s): 857668445 Code(s): L03.019 - CELLULITIS OF UNSPECIFIED FINGER; L02.519 - CUTANEOUS ABSCESS OF UNSPECIFIED HAND Status: Acute Current Visit: No (3) HTN (hypertension) SNOMED Code(s): 73163071 Code(s): I10 - ESSENTIAL (PRIMARY) HYPERTENSION Status: Acute Current Visit: No Qualifiers: Hypertension type: essential hypertension Qualified Code(s): I10 - Essential (primary) hypertension - Problem List Review Problem List Initiated/Reviewed/Updated: Yes - My Orders Last 24 Hours: My Active Orders 08/12/18 09:00 Allopurinol [Zyloprim] 100 mg PO DAILY Furosemide [Lasix] 40 mg PO DAILY Patient's Own Medication [Ptom] 0 each PO DAILY amLODIPine [Norvasc] 5 mg PO DAILY 08/12/18 12:00 Piperacillin/Tazobactam [Zosyn] 3.375 gm Sodium Chloride 0.9% [Normal Saline] 100 ml IV Q6HR 08/13/18 08:00 Potassium Chloride [Klor-Con 10] 20 meq PO WITHBREAKFAST 08/13/18 09:37 Hand w wo Cont Lt [MR] Routine 08/14/18 05:15 BASIC METABOLIC PANEL,BMP [CHEM] AM CBC WITH AUTO DIFF [HEME] AM - Plan Plan:: 72-year-old gentleman with diabetes, hypertension. The patient developed cellulitis, swelling, redness, tenderness of the left second finger distal phalanx The patient failed outpatient antibiotic with Keflex blood culture: pending obtain MRI to check for osteo, abscess treat with Zosyn stop vancomycin re: increasing creatinine Diabetes Will treat with Novolin 70/30 twice a day follow for morning hypoglycemia Treat with Supplemental insulin Use D50 for hypoglycemia Hypertension Treat with telmisartan, Norvasc Chronic kidney disease stage III Monitor renal function and electrolytes stop vancomycin DVT prophylaxis with subcutaneous heparin
[2018-08-13] MEDS: Sodium Chloride 0.9% 10 ML Syringe FLUSH PRN (12:40)
[2018-08-13] MEDS: Rosuvastatin 10 MG Tab PO SCH (22:00)
[2018-08-14] MEDS: Piperacillin/Tazobactam 3.375 GM in Sodium Chloride 0.9% 100 ML IV SCH ×4 (00:15→18:02)
[2018-08-14] MEDS: Heparin Sodium 5,000 Units/ML Vial SUBCUT SCH ×3 (06:22→21:25)
[2018-08-14 07:06] LABS: ANION GAP 14.1
[2018-08-14] MEDS: Insulin NPH/Insulin Regular,Human 70-30 100 Units/ML 10 ML Vial SUBCUT SCH ×2 (09:19→17:34)
[2018-08-14] MEDS: Potassium Chloride 10 MEQ Tab.ER PO SCH (09:21)
[2018-08-14] MEDS: Allopurinol 100 MG Tab PO SCH (09:21)
[2018-08-14] MEDS: hydrALAZINE 25 MG Tab PO SCH ×3 (09:22→21:24)
[2018-08-14] MEDS: amLODIPine 5 MG Tab PO SCH (09:23)
[2018-08-14] MEDS: Furosemide 40 MG Tab PO SCH (09:23)
[2018-08-14] MEDS: Aspirin 81 MG Tab.Chew PO SCH (09:23)
[2018-08-14] MEDS: Insulin Lispro 100 Units/ML 3 ML Vial SUBCUT SCH ×4 (09:56→21:20)
[2018-08-14] MEDS: TELMISARTAN 80 MG PO SCH (11:13)
--- NOTE | 2018-08-14 11:16 | PCM.PN ---
- General Info Date of Service: 08/14/18 Admission Dx/Problem (Free Text): Admission Diagnosis/Problem Admission Diagnosis/Problem Cellulitis Subjective Update: He was seen and examined today. No acute event overnight. Swelling and redness of finger improving. No fever or chills. Functional Status: Reports: Pain Controlled - Review of Systems General: Reports: No Symptoms HEENT: Reports: No Symptoms Pulmonary: Reports: No Symptoms Cardiovascular: Reports: No Symptoms Gastrointestinal: Reports: No Symptoms Genitourinary: Reports: No Symptoms Musculoskeletal: Reports: No Symptoms Skin: Reports: No Symptoms Neurological: Reports: No Symptoms Psychiatric: Reports: No Symptoms - Patient Data Vitals - Most Recent: Last Vital Signs Temp 98.2 F 08/14/18 08:00 Pulse 46 L 08/14/18 08:00 Resp 18 08/14/18 08:00 BP 139/80 08/14/18 09:23 Pulse Ox 96 08/14/18 08:00 Weight - Most Recent: 250 lb I&O - Last 24 Hours: Intake & Output 08/13/18 08/14/18 08/14/18 22:59 06:59 14:59 Intake Total 710 93 560 Balance 710 93 560 Lab Results Last 24 Hours: Laboratory Results - last 24 hr 08/13/18 08/13/18 08/13/18 Range/Units 11:15 17:06 21:11 WBC (5.0-10.0) 10^3/uL RBC (4.6-6.2) 10^6/uL Hgb (14.0-18.0) g/dL Hct (40.0-54.0) % MCV (80-100) fL MCH (27.0-34.0) pg MCHC (33.0-35.0) g/dL Plt Count (150-450) 10^3/uL Neut % (Auto) (42.2-75.2) % Lymph % (Auto) (20.5-50.1) % Reeves % (Auto) (2-8) % Eos % (Auto) (1.0-3.0) % Baso % (Auto) (0.0-1.0) % Sodium (135-145) mmol/L Potassium (3.6-5.0) mmol/L Chloride (101-111) mmol/L Carbon Dioxide (21.0-31.0) mmol/L Anion Gap BUN (7-18) mg/dL Creatinine (0.6-1.3) mg/dL Est Cr Clr Drug Dosing mL/min Estimated GFR (MDRD) Glucose (74-105) mg/dL POC Glucose 127 H 136 H 111 H (83-110) mg/dl Calcium (8.4-10.2) mg/dl 08/14/18 08/14/18 08/14/18 Range/Units 06:40 06:40 07:02 WBC 9.3 (5.0-10.0) 10^3/uL RBC 4.79 (4.6-6.2) 10^6/uL Hgb 13.3 L (14.0-18.0) g/dL Hct 40.6 (40.0-54.0) % MCV 84.8 (80-100) fL MCH 27.8 (27.0-34.0) pg MCHC 32.8 L (33.0-35.0) g/dL Plt Count 273 (150-450) 10^3/uL Neut % (Auto) 68.5 (42.2-75.2) % Lymph % (Auto) 11.8 L (20.5-50.1) % [place]eves % (Auto) 16.0 H (2-8) % Eos % (Auto) 2.8 (1.0-3.0) % Baso % (Auto) 0.9 (0.0-1.0) % Sodium 138 (135-145) mmol/L Potassium 4.1 (3.6-5.0) mmol/L Chloride 106 (101-111) mmol/L Carbon Dioxide 22.0 (21.0-31.0) mmol/L Anion Gap 14.1 BUN 19 H (7-18) mg/dL Creatinine 1.5 H (0.6-1.3) mg/dL Est Cr Clr Drug Dosing 47.41 mL/min Estimated GFR (MDRD) 46 Glucose 75 (74-105) mg/dL POC Glucose 63 L (83-110) mg/dl Calcium 9.5 (8.4-10.2) mg/dl Paul Results Last 24 Hours: Microbiology 08/11/18 16:15 Aerobic Blood Culture - Preliminary Blood - Venous - Lab Draw NO GROWTH AFTER 2 DAYS Anaerobic Blood Culture - Preliminary NO GROWTH AFTER 2 DAYS 08/11/18 16:05 Aerobic Blood Culture - Preliminary Blood - Venous NO GROWTH AFTER 2 DAYS Anaerobic Blood Culture - Preliminary NO GROWTH AFTER 2 DAYS Med Orders - Current: Current Medications Acetaminophen (Tylenol) 650 mg PO Q4HR PRN PRN Reason: Pain (Mild 1-3)/fever Hydrocodone Bitart/Acetaminophen ([place] 325-10 Mg) 1 tab PO Q4HR PRN PRN Reason: Pain (severe 7-10) Allopurinol (Zyloprim) 100 mg PO DAILY [facility] Last Admin: 08/14/18 09:21 Dose: 100 mg Amlodipine Besylate (Norvasc) 5 mg PO DAILY [facility] Last Admin: 08/14/18 09:23 Dose: 5 mg Aspirin (Aspirin) 81 mg PO WITHBREAKFAST [facility] Last Admin: 08/14/18 09:23 Dose: 81 mg Dextrose/Water (Dextrose 50% In Water) 25 ml IVPUSH Q1H PRN PRN Reason: blood sugar <70 Docusate Sodium (Colace) 100 mg PO BID PRN PRN Reason: Constipation Last Admin: 08/12/18 18:10 Dose: 100 mg Furosemide (Lasix) 40 mg PO DAILY [facility] Last Admin: 08/14/18 09:23 Dose: 40 mg Heparin Sodium (Porcine) (Heparin Sodium) 5,000 units SUBCUT Q8HR [facility] Last Admin: 08/14/18 06:22 Dose: 5,000 units Hydralazine HCl (Apresoline) 100 mg PO TID [facility] Last Admin: 08/14/18 09:22 Dose: 100 mg Piperacillin Sod/Tazobactam (Sod 3.375 gm/ Sodium Chloride) 100 mls @ 200 mls/ hr IV Q6HR [facility] Last Admin: 08/14/18 06:22 Dose: 200 mls/hr Ibuprofen (Motrin) 400 mg PO Q6HR PRN PRN Reason: Pain (moderate 4-6) Last Admin: 08/11/18 18:19 Dose: 400 mg Insulin Human Isoph/Insulin Regular (Novolin 70-30) 60 unit SUBCUT BIDMEALS [facility] Last Admin: 08/14/18 09:19 Dose: 60 units Insulin Human Lispro (Humalog) 0 unit SUBCUT ACBED [facility]; Protocol Last Admin: 08/14/18 09:56 Dose: Not Given Ondansetron HCl (Zofran Odt) 4 mg PO Q6HR PRN PRN Reason: nausea, able to take PO Telmisartan 80 Mg (Pt's Own Med) 0 each PO DAILY [facility] Last Admin: 08/13/18 08:15 Dose: 1 each Potassium Chloride (Klor-Con 10) 20 meq PO WITHBREAKFAST [facility] Last Admin: 08/14/18 09:21 Dose: 20 meq Rosuvastatin Calcium (Crestor) 40 mg PO BEDTIME [facility] Last Admin: 08/13/18 22:00 Dose: 40 mg Sodium Chloride (Saline Flush) 10 ml FLUSH ASDIRECTED PRN PRN Reason: Keep Vein Open Last Admin: 08/13/18 12:40 Dose: 10 ml Zolpidem Tartrate (Ambien) 5 mg PO BEDTIME PRN PRN Reason: Sleep Discontinued Medications Piperacillin Sod/Tazobactam (Sod 3.375 gm/ Sodium Chloride) 100 mls @ 200 mls/ hr IV Q6HR [facility] Last Admin: 08/12/18 12:12 Dose: Not Given Vancomycin HCl 1.25 gm/ Sodium (Chloride) 250 mls @ 166.667 mls/hr IV ONETIME ONE Stop: 08/11/18 18:29 Last Admin: 08/11/18 18:20 Dose: 166.667 mls/hr Vancomycin HCl 1 gm/ Sodium (Chloride) 250 mls @ 166.667 mls/hr IV Q12H [facility] Last Admin: 08/13/18 06:30 Dose: 166.667 mls/hr Potassium Chloride (Klor-Con 10) 40 meq PO BIDMEALS [facility] Stop: 08/12/18 18:01 Last Admin: 08/12/18 18:10 Dose: 40 meq Vancomycin HCl (Pharmacy To Dose - Vancomycin) 1 dose .XX ASDIRECTED KALEB - Exam Quality Assessment: DVT Prophylaxis General: Alert, Oriented HEENT: Pupils Equal, Pupils Reactive, EOMI, Mucous Membr. Moist/[place] Neck: Supple Lungs: Clear to Auscultation, Normal Respiratory Effort Cardiovascular: Regular Rate, Regular Rhythm GI/Abdominal Exam: Normal Bowel Sounds, Soft, Non-Tender, No Organomegaly, No Distention, No Abnormal Bruit, No Mass, Pelvis Stable (Male) Exam: No Hernia, Normal Inspection, Normal Prostate, Circumcised Back Exam: Normal Inspection, Full Range of Motion Extremities: Normal Inspection, Normal Range of Motion, Non-Tender, No Pedal Edema, Normal Capillary Refill Skin: Warm, Dry, Intact Wound/Incisions: Healing Well Neurological: No New Focal Deficit Psy/Mental Status: Alert, Normal Affect, Normal Mood - Problem List Review Problem List Initiated/Reviewed/Updated: Yes - Plan Plan:: 72-year-old gentleman with diabetes, hypertension. The patient developed cellulitis, swelling, redness, tenderness of the left second finger distal phalanx The patient failed outpatient antibiotic with Keflex blood culture no growth to date MRI of left index finger; No osteomyelitis or abscess Continue IV Zosyn Diabetes Novolin 70/30 twice a day SSI POC glucose 4x daily Hypoglycemic protocol Hypertension BP within acceptable limits Continue telmisartan, Norvasc Chronic kidney disease stage III Monitor renal function and electrolytes DVT prophylaxis with subcutaneous heparin Full code
[2018-08-14] MEDS: Sodium Chloride 0.9% 10 ML Syringe FLUSH PRN (18:44)
[2018-08-14] MEDS: Rosuvastatin 10 MG Tab PO SCH (21:25)
[2018-08-15] MEDS: Piperacillin/Tazobactam 3.375 GM in Sodium Chloride 0.9% 100 ML IV SCH ×3 (00:01→11:30)
[2018-08-15] MEDS: Heparin Sodium 5,000 Units/ML Vial SUBCUT SCH (05:57)
[2018-08-15] MEDS: Insulin Lispro 100 Units/ML 3 ML Vial SUBCUT SCH ×2 (08:29→13:09)
[2018-08-15] MEDS: Aspirin 81 MG Tab.Chew PO SCH (08:41)
[2018-08-15] MEDS: amLODIPine 5 MG Tab PO SCH (08:41)
[2018-08-15] MEDS: Allopurinol 100 MG Tab PO SCH (08:41)
[2018-08-15] MEDS: Potassium Chloride 10 MEQ Tab.ER PO SCH (08:41)
[2018-08-15] MEDS: Furosemide 40 MG Tab PO SCH (08:42)
[2018-08-15] MEDS: hydrALAZINE 25 MG Tab PO SCH (08:42)
[2018-08-15] MEDS: Insulin NPH/Insulin Regular,Human 70-30 100 Units/ML 10 ML Vial SUBCUT SCH (08:43)
[2018-08-15] MEDS: TELMISARTAN 80 MG PO SCH (08:43)
--- NOTE | 2018-08-15 10:24 | PCM.DCSUM1 ---
Discharge Summary - Hospital Course Free Text/Narrative:: Patient was admitted for left index finger cellulitis. He received antibiotics with improvement. MRI of the left finger was negative for osteomyelitis. He is being discharge home in a stable condition on PO abx. He will follow up with PCP. Diagnosis: Stroke: No - Discharge Data Discharge Date: 08/15/18 Discharge Disposition: Home, Self-Care 01 Condition: Good - Patient Instructions Diet: Heart Healthy Diet Showering/Bathing: September Shower Notify Provider of: Fever, Increased Pain, Swelling and Redness, Nausea and/or Vomiting - Discharge Plan *PRESCRIPTION DRUG MONITORING PROGRAM REVIEWED*: Not Applicable *COPY OF PRESCRIPTION DRUG MONITORING REPORT IN PATIENT MAGALY: Not Applicable Prescriptions/Med Rec: cephALEXin [Keflex] 500 mg PO Q8H #21 cap Home Medications: Home Meds Allopurinol [Zyloprim] 100 mg PO DAILY 05/06/16 [History] Furosemide 40 mg PO DAILY 05/06/16 [History] Linagliptin [Tradjenta] 5 mg PO DAILY 05/06/16 [History] Rosuvastatin [Crestor] 40 mg PO BEDTIME 05/06/16 [History] Telmisartan [Micardis] 80 mg PO DAILY 05/06/16 [History] Aspirin 81 mg PO DAILY 08/11/18 [History] Insulin NPH/Insulin Reg,Human [Novolin 70-30] 60 units SUBCUT BIDMEALS 08/11/18 [History] amLODIPine [Norvasc] 5 mg PO DAILY 08/11/18 [History] hydrALAZINE HCl [Hydralazine HCl] 100 mg PO TID 08/11/18 [History] cephALEXin [Keflex] 500 mg PO Q8H #21 cap 08/15/18 [Rx] Oxygen Therapy Mode: Room Air - Discharge Summary/Plan Comment DC Time >30 min.: Yes - General Info Admission Dx/Problem (Free Text: Admission Diagnosis/Problem Admission Diagnosis/Problem Cellulitis Subjective Update: He was seen and examined today. No acute event overnight. Swelling and redness of finger improving. No fever or chills. Functional Status: Reports: Pain Controlled - Review of Systems General: Reports: No Symptoms HEENT: Reports: No Symptoms Pulmonary: Reports: No Symptoms Cardiovascular: Reports: No Symptoms Gastrointestinal: Reports: No Symptoms Genitourinary: Reports: No Symptoms Musculoskeletal: Reports: No Symptoms Skin: Reports: No Symptoms Neurological: Reports: No Symptoms Psychiatric: Reports: No Symptoms - Patient Data Vitals - Most Recent: Last Vital Signs Temp 98.3 F 08/15/18 08:00 Pulse 48 L 08/15/18 08:00 Resp 20 08/15/18 08:00 BP 132/68 08/15/18 08:42 Pulse Ox 95 08/15/18 08:00 Weight - Most Recent: 250 lb I&O - Last 24 hours: Intake & Output 08/14/18 08/15/18 08/15/18 22:59 06:59 14:59 Intake Total 1550 Balance 1550 Lab Results - Last 24 hrs: Laboratory Results - last 24 hr 08/14/18 08/14/18 08/14/18 Range/Units 11:20 16:56 21:13 POC Glucose 116 H 126 H 108 (83-110) mg/dl 08/15/18 Range/Units 07:25 POC Glucose 63 L (83-110) mg/dl [facility] Results - Last 24 hrs: Microbiology 08/11/18 16:15 Aerobic Blood Culture - Preliminary Blood - Venous - Lab Draw NO GROWTH AFTER 3 DAYS Anaerobic Blood Culture - Preliminary NO GROWTH AFTER 3 DAYS 08/11/18 16:05 Aerobic Blood Culture - Preliminary Blood - Venous NO GROWTH AFTER 3 DAYS Anaerobic Blood Culture - Preliminary NO GROWTH AFTER 3 DAYS Med Orders - Current: Current Medications Acetaminophen (Tylenol) 650 mg PO Q4HR PRN PRN Reason: Pain (Mild 1-3)/fever Hydrocodone Bitart/Acetaminophen ([place] 325-10 Mg) 1 tab PO Q4HR PRN PRN Reason: Pain (severe 7-10) Allopurinol (Zyloprim) 100 mg PO DAILY [facility] Last Admin: 08/15/18 08:41 Dose: 100 mg Amlodipine Besylate (Norvasc) 5 mg PO DAILY [facility] Last Admin: 08/15/18 08:41 Dose: 5 mg Aspirin (Aspirin) 81 mg PO WITHBREAKFAST [facility] Last Admin: 08/15/18 08:41 Dose: 81 mg Dextrose/Water (Dextrose 50% In Water) 25 ml IVPUSH Q1H PRN PRN Reason: blood sugar <70 Docusate Sodium (Colace) 100 mg PO BID PRN PRN Reason: Constipation Last Admin: 08/12/18 18:10 Dose: 100 mg Furosemide (Lasix) 40 mg PO DAILY [facility] Last Admin: 08/15/18 08:42 Dose: 40 mg Heparin Sodium (Porcine) (Heparin Sodium) 5,000 units SUBCUT Q8HR [facility] Last Admin: 08/15/18 05:57 Dose: 5,000 units Hydralazine HCl (Apresoline) 100 mg PO TID [facility] Last Admin: 08/15/18 08:42 Dose: 100 mg Piperacillin Sod/Tazobactam (Sod 3.375 gm/ Sodium Chloride) 100 mls @ 200 mls/ hr IV Q6HR [facility] Last Admin: 08/15/18 05:57 Dose: 200 mls/hr Ibuprofen (Motrin) 400 mg PO Q6HR PRN PRN Reason: Pain (moderate 4-6) Last Admin: 08/11/18 18:19 Dose: 400 mg Insulin Human Isoph/Insulin Regular (Novolin 70-30) 60 unit SUBCUT BIDMEALS [facility] Last Admin: 08/15/18 08:43 Dose: 60 units Insulin Human Lispro (Humalog) 0 unit SUBCUT ACBED [facility]; Protocol Last Admin: 08/15/18 08:29 Dose: Not Given Ondansetron HCl (Zofran Odt) 4 mg PO Q6HR PRN PRN Reason: nausea, able to take PO Telmisartan 80 Mg (Pt's Own Med) 0 each PO DAILY [facility] Last Admin: 08/15/18 08:43 Dose: 1 each Potassium Chloride (Klor-Con 10) 20 meq PO WITHBREAKFAST [facility] Last Admin: 08/15/18 08:41 Dose: 20 meq Rosuvastatin Calcium (Crestor) 40 mg PO BEDTIME [facility] Last Admin: 08/14/18 21:25 Dose: 40 mg Sodium Chloride (Saline Flush) 10 ml FLUSH ASDIRECTED PRN PRN Reason: Keep Vein Open Last Admin: 08/14/18 18:44 Dose: 10 ml Zolpidem Tartrate (Ambien) 5 mg PO BEDTIME PRN PRN Reason: Sleep Discontinued Medications Piperacillin Sod/Tazobactam (Sod 3.375 gm/ Sodium Chloride) 100 mls @ 200 mls/ hr IV Q6HR [facility] Last Admin: 08/12/18 12:12 Dose: Not Given Vancomycin HCl 1.25 gm/ Sodium (Chloride) 250 mls @ 166.667 mls/hr IV ONETIME ONE Stop: 08/11/18 18:29 Last Admin: 08/11/18 18:20 Dose: 166.667 mls/hr Vancomycin HCl 1 gm/ Sodium (Chloride) 250 mls @ 166.667 mls/hr IV Q12H [facility] Last Admin: 08/13/18 06:30 Dose: 166.667 mls/hr Potassium Chloride (Klor-Con 10) 40 meq PO BIDMEALS [facility] Stop: 08/12/18 18:01 Last Admin: 08/12/18 18:10 Dose: 40 meq Vancomycin HCl (Pharmacy To Dose - Vancomycin) 1 dose .XX ASDIRECTED [facility] - Exam General: Reports: Alert, Oriented HEENT: Reports: Pupils Equal, Pupils Reactive, EOMI, Mucous Membr. Moist/[place] Neck: Reports: Supple Lungs: Reports: Clear to Auscultation, Normal Respiratory Effort Cardiovascular: Reports: Regular Rate, Regular Rhythm GI/Abdominal Exam: Normal Bowel Sounds, Soft, Non-Tender, No Organomegaly, No Distention, No Abnormal Bruit, No Mass, Pelvis Stable (Male) Exam: No Hernia, Normal Inspection, Normal Prostate, Circumcised Rectal (Males) Exam: Normal Exam, Normal Rectal Tone, Prostate Normal Back Exam: Reports: Normal Inspection, Full Range of Motion Extremities: Normal Inspection, Normal Range of Motion, Non-Tender, No Pedal Edema, Normal Capillary Refill Skin: Reports: Warm, Dry, Intact Wound/Incisions: Reports: Healing Well Neurological: Reports: No New Focal Deficit Psy/Mental Status: Reports: Alert, Normal Affect, Normal Mood
[2018-08-15 11:50] VITALS: BP 134/66; PULSE 42
[2018-08-18] MEDS ORDERED: INSULIN NPH SUBCUT SCH (18:00)
[2018-08-18] MEDS ORDERED: INSULIN REGULAR HUMAN SUBCUT SCH (18:00)
== END 2018-08-15 12:20 | disposition home or self-care (01) | DRG 639 ==
LOC: UNDOADMIN 14:18 → DL.MS 14:18
PROVIDERS: ADMIT Internal Medicine; ATTEND Student in an Organized Health Care Education/Training Program
DX: E11.628 Type 2 diabetes mellitus with other skin complications (principal); L03.012 Cellulitis of left finger; I25.10 Atherosclerotic heart disease of native coronary artery without angina pectoris; H26.9 Unspecified cataract; E11.9 Type 2 diabetes mellitus without complications; H54.7 Unspecified visual loss; E78.00 Pure hypercholesterolemia, unspecified; M19.91 Primary osteoarthritis, unspecified site; M10.9 Gout, unspecified; E11.40 Type 2 diabetes mellitus with diabetic neuropathy, unspecified; E11.649 Type 2 diabetes mellitus with hypoglycemia without coma; E11.22 Type 2 diabetes mellitus with diabetic chronic kidney disease; I12.9 Hypertensive chronic kidney disease with stage 1 through stage 4 chronic kidney disease, or unspecified chronic kidney disease; N18.3 Chronic kidney disease, stage 3 (moderate); Z85.46 Personal history of malignant neoplasm of prostate; Z95.5 Presence of coronary angioplasty implant and graft; Z87.891 Personal history of nicotine dependence; Z79.4 Long term (current) use of insulin; Z79.82 Long term (current) use of aspirin; Z89.9 Acquired absence of limb, unspecified
CPT/HCPCS: 36415; 73218-LT; 80048; 80202; 82962; 85025; 87040; A9270-GY; J1644; J1815; J1815-GY; J2543; J3370; J7050

== ENCOUNTER 2021-05-23 05:26 | Day surgery (SDC) | payer MEDICARE, BC ==
[2021-05-23] MEDS ORDERED: fentaNYL 100 MCG/2 ML SDV IV ONE ×3 (05:27→06:30)
[2021-05-23] MEDS ORDERED: Midazolam 1 MG/ML 2 ML SDV IV ONE ×3 (05:27→06:32)
[2021-05-23] MEDS ORDERED: Sodium Chloride 0.9% 10 ML Syringe FLUSH PRN (05:30)
[2021-05-23] MEDS ORDERED: Dextrose 5%-0.45% NaCl 1,000 ML IV SCH (05:30)
[2021-05-23] MEDS ORDERED: fentaNYL 100 MCG/2 ML SDV ONE (06:00)
[2021-05-23] MEDS ORDERED: Midazolam 1 MG/ML 2 ML SDV ONE (06:00)
[2021-05-23 08:39] VITALS: BP 103/56; PULSE 62
== END 2021-05-23 08:45 | disposition home or self-care (01) ==
LOC: DL.ENDO 05:26
PROVIDERS: ATTEND Internal Medicine Gastroenterology
DX: K29.50 Unspecified chronic gastritis without bleeding (principal); D50.9 Iron deficiency anemia, unspecified; E11.9 Type 2 diabetes mellitus without complications; I25.10 Atherosclerotic heart disease of native coronary artery without angina pectoris; E66.09 Other obesity due to excess calories; Z95.0 Presence of cardiac pacemaker; I10 Essential (primary) hypertension; E79.0 Hyperuricemia without signs of inflammatory arthritis and tophaceous disease; G47.33 Obstructive sleep apnea (adult) (pediatric); K57.30 Diverticulosis of large intestine without perforation or abscess without bleeding; Z85.46 Personal history of malignant neoplasm of prostate; Z01.812 Encounter for preprocedural laboratory examination; Z20.822 Contact with and (suspected) exposure to COVID-19; Z68.30 Body mass index [BMI] 30.0-30.9, adult
CPT/HCPCS: 43239; 87077; 88305; 88342; J2250; J3010; J7042; U0002

== ENCOUNTER 2021-05-29 09:40 | Emergency (ER) | payer MEDICARE, BC ==
[2021-05-29 10:14] VITALS: BP 109/61; PULSE 78
[2021-05-29 10:38] LABS: ANION GAP 13.7 mEq/L (7-13); CHLORIDE,CL 102 mmol/L (98-107); SODIUM,NA 138 mmol/L (136-145)
== END 2021-05-29 12:30 | disposition home or self-care (01) ==
LOC: DL.ED 09:40
DX: J15.9 Unspecified bacterial pneumonia (principal); B96.89 Other specified bacterial agents as the cause of diseases classified elsewhere; I48.91 Unspecified atrial fibrillation; I25.10 Atherosclerotic heart disease of native coronary artery without angina pectoris; E78.00 Pure hypercholesterolemia, unspecified; I10 Essential (primary) hypertension; E11.9 Type 2 diabetes mellitus without complications; M10.9 Gout, unspecified; E66.9 Obesity, unspecified; R91.8 Other nonspecific abnormal finding of lung field; Z68.30 Body mass index [BMI] 30.0-30.9, adult; Z95.5 Presence of coronary angioplasty implant and graft; Z79.899 Other long term (current) drug therapy; Z79.01 Long term (current) use of anticoagulants
CPT/HCPCS: 36415; 71045; 71250; 80053; 82150; 83605; 83690; 84484; 85025; 85610; 85730; 86140; 93005; 99285-25

== ENCOUNTER 2021-06-09 06:09 | Day surgery (SDC) | payer MEDICARE, BC ==
[~2021-06-09 06:09] MED LIST: Dextrose 5%-0.45% NaCl 1,000 ML IV SCH; Midazolam 1 MG/ML 2 ML SDV ONE; Sodium Chloride 0.9% 10 ML Syringe FLUSH PRN; fentaNYL 100 MCG/2 ML SDV ONE
[2021-06-09] MEDS ORDERED: Midazolam 1 MG/ML 2 ML SDV IV ONE ×7 (06:10→07:34)
[2021-06-09] MEDS ORDERED: fentaNYL 100 MCG/2 ML SDV IV ONE ×6 (06:10→08:10)
[2021-06-09 10:29] VITALS: BP 129/75; PULSE 67
== END 2021-06-09 10:35 | disposition home or self-care (01) ==
LOC: DL.ENDO 06:09
PROVIDERS: ATTEND Internal Medicine Gastroenterology
DX: D12.3 Benign neoplasm of transverse colon (principal); D12.2 Benign neoplasm of ascending colon; D12.0 Benign neoplasm of cecum; D50.9 Iron deficiency anemia, unspecified; K57.30 Diverticulosis of large intestine without perforation or abscess without bleeding; E66.09 Other obesity due to excess calories; I25.10 Atherosclerotic heart disease of native coronary artery without angina pectoris; E11.9 Type 2 diabetes mellitus without complications; I10 Essential (primary) hypertension; E79.0 Hyperuricemia without signs of inflammatory arthritis and tophaceous disease; G47.33 Obstructive sleep apnea (adult) (pediatric); Z95.5 Presence of coronary angioplasty implant and graft; Z95.0 Presence of cardiac pacemaker; Z85.46 Personal history of malignant neoplasm of prostate
CPT/HCPCS: 45385; J2250; J3010; J7042; 88305

== ENCOUNTER 2021-07-06 03:55 | Observation (INO) | payer MEDICARE, BC ==
[2021-07-06] MEDS ORDERED: Ondansetron 4 MG/2 ML SDV IVPUSH ONE (04:08)
[2021-07-06 04:58] LABS: ANION GAP 14.4 mEq/L (7-13)
[2021-07-06] MEDS ORDERED: Meclizine 12.5 MG Tab PO ONE ×2 (05:14→10:54)
[2021-07-06] MEDS ORDERED: Metoclopramide 10 MG/2 ML SDV IVPUSH ONE (05:17)
[2021-07-06] MEDS ORDERED: Sodium Chloride 0.9% 500 ML IV ONE (06:34)
[2021-07-06] MEDS ORDERED: Dexamethasone 4 MG/ML SDV IVPUSH ONE (06:59)
[2021-07-06] MEDS ORDERED: Ondansetron 4 MG Tab.DIS PO ONE (10:54)
[2021-07-06] MEDS ORDERED: Ondansetron 4 MG Tab.DIS ONE (11:03)
[2021-07-06] MEDS ORDERED: Docusate Sodium 100 MG Cap PO PRN (12:30)
[2021-07-06] MEDS ORDERED: Acetaminophen 325 MG Tab PO PRN (12:30)
[2021-07-06] MEDS ORDERED: Ondansetron 4 MG/2 ML SDV IVPUSH PRN (12:30)
[2021-07-06] MEDS ORDERED: oxyCODONE 5 MG Tab PO PRN (12:30)
[2021-07-06] MEDS ORDERED: Nitroglycerin 0.4 MG Tab.SL SL PRN (12:38)
[2021-07-06] MEDS ORDERED: Potassium Chloride 10 MEQ Tab.ER PO ONE (12:44)
[2021-07-06] MEDS ORDERED: Meclizine 12.5 MG Tab PO SCH (12:45)
[2021-07-06] MEDS: Sodium Chloride 0.9% 1,000 ML IV SCH ×2 (15:27→23:14)
[2021-07-06] MEDS: hydrALAZINE 25 MG Tab PO SCH ×2 (15:29→22:12)
[2021-07-06] MEDS: NOVOLIN SUBCUT SCH (17:32)
[2021-07-06] MEDS: Meclizine 12.5 MG Tab PO SCH ×2 (17:33→23:10)
[2021-07-06] MEDS: Dexamethasone 2 MG Tab PO SCH (21:53)
[2021-07-06] MEDS: Apixaban 5 MG Tab PO SCH (21:53)
[2021-07-06] MEDS: LORazepam 1 MG Tab PO SCH (21:54)
[2021-07-07] MEDS: Meclizine 12.5 MG Tab PO SCH ×4 (05:38→22:14)
[2021-07-07 06:54] LABS: ANION GAP 14.6 mEq/L (7-13)
[2021-07-07] MEDS: Sodium Chloride 0.9% 1,000 ML IV SCH (07:52)
[2021-07-07] MEDS ORDERED: TELMISARTAN 40 MG PO SCH (09:00)
[2021-07-07] MEDS: Metoprolol Succinate 25 MG Tab.ER PO SCH (09:43)
[2021-07-07] MEDS: Aspirin 81 MG Tab.Chew PO SCH (09:43)
[2021-07-07] MEDS: hydrALAZINE 25 MG Tab PO SCH ×3 (09:47→21:25)
[2021-07-07] MEDS: amLODIPine 5 MG Tab PO SCH (09:48)
[2021-07-07] MEDS: Dexamethasone 2 MG Tab PO SCH ×2 (09:48→21:26)
[2021-07-07] MEDS: Apixaban 5 MG Tab PO SCH ×2 (09:48→21:26)
[2021-07-07] MEDS: LORazepam 1 MG Tab PO SCH ×2 (09:48→21:25)
[2021-07-07] MEDS ORDERED: Sodium Chloride 0.9% 10 ML Syringe FLUSH PRN (10:01)
[2021-07-07] MEDS: NOVOLIN SUBCUT SCH ×2 (10:29→17:53)
[2021-07-07] MEDS ORDERED: Insulin NPH HUM/REG Insulin HM 100 UNIT/ML 3 ML Vial SQ ONE (21:40)
[2021-07-08] MEDS: Meclizine 12.5 MG Tab PO SCH ×2 (04:59→12:18)
[2021-07-08] MEDS: Aspirin 81 MG Tab.Chew PO SCH (09:15)
[2021-07-08] MEDS: LORazepam 1 MG Tab PO SCH (09:16)
[2021-07-08] MEDS: Dexamethasone 2 MG Tab PO SCH (09:17)
[2021-07-08] MEDS: Apixaban 5 MG Tab PO SCH (09:17)
[2021-07-08] MEDS: hydrALAZINE 25 MG Tab PO SCH (09:18)
[2021-07-08] MEDS: amLODIPine 5 MG Tab PO SCH (09:18)
[2021-07-08] MEDS: Metoprolol Succinate 25 MG Tab.ER PO SCH (09:18)
[2021-07-08] MEDS: NOVOLIN SUBCUT SCH ×2 (09:27→12:15)
[2021-07-08 12:41] VITALS: BP 127/68; PULSE 61
[2021-07-08] MEDS ORDERED: LORazepam 1 MG Tab PO ONE (12:49)
[2021-07-08] MEDS ORDERED: Dexamethasone 2 MG Tab PO ONE (12:49)
[2021-07-08] MEDS ORDERED: Dexamethasone 2 MG Tab ONE (14:28)
[2021-07-08] MEDS ORDERED: LORazepam 1 MG Tab ONE (14:29)
== END 2021-07-08 12:50 | disposition home or self-care (01) ==
LOC: DL.ED 03:55 → DL.MS 12:20
PROVIDERS: ADMIT Internal Medicine; ATTEND Internal Medicine
DX: R42 Dizziness and giddiness (principal); H83.09 Labyrinthitis, unspecified ear; I25.10 Atherosclerotic heart disease of native coronary artery without angina pectoris; I48.91 Unspecified atrial fibrillation; E78.00 Pure hypercholesterolemia, unspecified; I10 Essential (primary) hypertension; D50.9 Iron deficiency anemia, unspecified; G47.30 Sleep apnea, unspecified; M19.90 Unspecified osteoarthritis, unspecified site; E66.9 Obesity, unspecified; E11.40 Type 2 diabetes mellitus with diabetic neuropathy, unspecified; Z68.30 Body mass index [BMI] 30.0-30.9, adult; Z95.5 Presence of coronary angioplasty implant and graft; Z98.890 Other specified postprocedural states; Z79.82 Long term (current) use of aspirin; Z79.4 Long term (current) use of insulin; Z79.899 Other long term (current) drug therapy; Z79.01 Long term (current) use of anticoagulants; Z20.822 Contact with and (suspected) exposure to COVID-19
CPT/HCPCS: 36415; 70450; 80048; 80053; 81001; 82947; 83605; 84484; 85025; 86140; 93005; 96374; 96375; 97161; 97530; 99285; A9270; G0378; J1100; J2405; J2765; J3360; J7030; J8540; U0002

== ENCOUNTER 2023-03-02 16:38 | Emergency (ER) | payer MEDICARE, BC ==
[2023-03-02] MEDS ORDERED: Ondansetron 4 MG Tab.DIS PO ONE (16:55)
[2023-03-02 16:59] VITALS: PULSE 84
[2023-03-02 17:09] VITALS: BP 182/101
[2023-03-02] MEDS ORDERED: Take Home: Ondansetron 4 MG Tab.DIS, 5 Tab Pack PO ONE (17:14)
== END 2023-03-02 17:29 | disposition home or self-care (01) ==
LOC: DL.ED 16:38
DX: U07.1 COVID-19 (principal); I48.91 Unspecified atrial fibrillation; I25.10 Atherosclerotic heart disease of native coronary artery without angina pectoris; I10 Essential (primary) hypertension; E78.00 Pure hypercholesterolemia, unspecified; M10.9 Gout, unspecified; E11.40 Type 2 diabetes mellitus with diabetic neuropathy, unspecified; E66.9 Obesity, unspecified; Z68.33 Body mass index [BMI] 33.0-33.9, adult; Z86.16 Personal history of COVID-19; Z79.82 Long term (current) use of aspirin; Z79.4 Long term (current) use of insulin; Z79.899 Other long term (current) drug therapy
CPT/HCPCS: 99284; A9270; Q0162

== ENCOUNTER 2024-04-13 17:57 | Emergency (ER) | payer MEDICARE, BC ==
[2024-04-13 18:14] VITALS: BP 169/94; PULSE 67
== END 2024-04-13 19:28 | disposition home or self-care (01) ==
LOC: DL.ED 17:57
DX: S51.011A Laceration without foreign body of right elbow, initial encounter (principal); I48.91 Unspecified atrial fibrillation; I25.10 Atherosclerotic heart disease of native coronary artery without angina pectoris; I10 Essential (primary) hypertension; E78.00 Pure hypercholesterolemia, unspecified; M19.90 Unspecified osteoarthritis, unspecified site; E11.42 Type 2 diabetes mellitus with diabetic polyneuropathy; E66.9 Obesity, unspecified; Z95.5 Presence of coronary angioplasty implant and graft; Z86.16 Personal history of COVID-19; Z79.4 Long term (current) use of insulin; Z79.01 Long term (current) use of anticoagulants; Z79.82 Long term (current) use of aspirin; Z79.899 Other long term (current) drug therapy; W01.0XXA Fall on same level from slipping, tripping and stumbling without subsequent striking against object, initial encounter; Z68.31 Body mass index [BMI] 31.0-31.9, adult
CPT/HCPCS: 12001; 73080-RT; 99283